=== PATIENT | female | born 1940 | race Caucasian/White ===

== ENCOUNTER 2021-10-28 04:21 | Day surgery (SDC) | payer OTHER ==
[2021-10-27 12:15] VITALS: BMI 36.9
[2021-10-28] MEDS ORDERED: BUPIVACAINE HCL/PF 0.5% (5MG/ML) 10 ML VIAL ONE (07:04)
[2021-10-28] MEDS ORDERED: LIDOCAINE HCL/PF 1% SDV 5ML VIAL ONE (07:04)
[2021-10-28] MEDS ORDERED: IOHEXOL 180 MG/1 ML ML IJ ONE (09:03)
[2021-10-28] MEDS ORDERED: BUPIVACAINE HCL/PF 0.5% (5MG/ML) 10 ML VIAL IJ ONE ×2 (09:03→09:07)
[2021-10-28 09:50] VITALS: BP 133/79; PULSE 74; TEMP 98
== END 2021-10-28 09:45 | disposition home or self-care (01) ==
LOC: JASU-SURG 04:21
PROVIDERS: ATTEND Pain Medicine Pain Medicine
PROC: BR14YZZ Fluoroscopy of Cervical Facet Joint(s) using Other Contrast (ICD-10-PCS; 2021-10-28)
PROC: 3E0T3BZ Introduction of Anesthetic Agent into Peripheral Nerves and Plexi, Percutaneous Approach (ICD-10-PCS; principal; 2021-10-28 08:30)
DX: M47.812 Spondylosis without myelopathy or radiculopathy, cervical region (principal); I10 Essential (primary) hypertension
CPT/HCPCS: 76000-TC-FY

== ENCOUNTER 2021-11-18 04:24 | Day surgery (SDC) | payer OTHER ==
[2021-11-17 08:43] VITALS: BMI 36.3
[2021-11-18] MEDS ORDERED: LIDOCAINE HCL/PF 1% SDV 5ML VIAL ONE (07:21)
[2021-11-18] MEDS ORDERED: LIDOCAINE HCL 1% PRESERVATIVE FREE - 30ML VIAL IJ ONE (08:24)
[2021-11-18] MEDS ORDERED: BUPIVACAINE HCL/PF 0.5% (5MG/ML) 10 ML VIAL IJ ONE (08:25)
[2021-11-18] MEDS ORDERED: IOHEXOL 180 MG/1 ML ML IJ ONE (08:25)
[2021-11-18 08:54] VITALS: BP 141/81; PULSE 74; TEMP 98.2
== END 2021-11-18 09:10 | disposition home or self-care (01) ==
LOC: JASU-SURG 04:24
PROVIDERS: ATTEND Pain Medicine Pain Medicine
PROC: BR14YZZ Fluoroscopy of Cervical Facet Joint(s) using Other Contrast (ICD-10-PCS; 2021-11-18)
PROC: 3E0T3BZ Introduction of Anesthetic Agent into Peripheral Nerves and Plexi, Percutaneous Approach (ICD-10-PCS; principal; 2021-11-18 08:30)
DX: M47.812 Spondylosis without myelopathy or radiculopathy, cervical region (principal)
CPT/HCPCS: 76000-TC-FY

== ENCOUNTER 2021-12-16 04:15 | Day surgery (SDC) | payer OTHER ==
[2021-12-15 09:36] VITALS: BMI 36.3
[2021-12-16] MEDS ORDERED: BUPIVACAINE HCL/PF 0.75% 10 ML VIAL ONE (07:24)
[2021-12-16] MEDS ORDERED: LIDOCAINE HCL/PF 1% SDV 5ML VIAL ONE (07:24)
[2021-12-16] MEDS ORDERED: BUPIVACAINE HCL/PF 0.5% (5MG/ML) 10 ML VIAL ONE (12:09)
[2021-12-16] MEDS ORDERED: LIDOCAINE HCL 1% PRESERVATIVE FREE - 30ML VIAL IJ ONE (12:11)
[2021-12-16] MEDS ORDERED: DEXAMETHASONE SOD PHOSPHATE 10 MG/1 ML VIAL IVPUSH ONE (12:13)
[2021-12-16] MEDS ORDERED: BUPIVACAINE HCL/PF 0.5% (5MG/ML) 10 ML VIAL IJ ONE ×2 (12:14→12:18)
[2021-12-16] MEDS ORDERED: LIDOCAINE HCL/PF 2% SDV 5ML VIAL INF ONE ×2 (12:15→12:25)
[2021-12-16 12:57] VITALS: TEMP 97.5
[2021-12-16 13:10] VITALS: BP 129/76; PULSE 68
== END 2021-12-16 13:10 | disposition home or self-care (01) ==
LOC: JASU-SURG 04:15
PROVIDERS: ATTEND Pain Medicine Pain Medicine
PROC: 3E0T3TZ Introduction of Destructive Agent into Peripheral Nerves and Plexi, Percutaneous Approach (ICD-10-PCS; principal; 2021-12-16 11:30)
PROC: BR14YZZ Fluoroscopy of Cervical Facet Joint(s) using Other Contrast (ICD-10-PCS; 2021-12-16 11:30)
DX: M47.812 Spondylosis without myelopathy or radiculopathy, cervical region (principal); I10 Essential (primary) hypertension
CPT/HCPCS: 76000-TC-FY; J1100

== ENCOUNTER 2022-02-10 04:18 | Day surgery (SDC) | payer OTHER ==
[2022-02-06 16:49] VITALS: BMI 36.3
[2022-02-10] MEDS ORDERED: LIDOCAINE HCL/PF 1% SDV 5ML VIAL ONE ×2 (07:23→10:41)
[2022-02-10] MEDS ORDERED: BUPIVACAINE HCL/PF 0.5% (5MG/ML) 10 ML VIAL ONE (07:23)
[2022-02-10] MEDS ORDERED: LIDOCAINE HCL/PF 2% SDV 5ML VIAL ONE (09:59)
[2022-02-10 10:13] VITALS: TEMP 97.8
[2022-02-10] MEDS ORDERED: LIDOCAINE HCL 1% PRESERVATIVE FREE - 30ML VIAL INF ONE (10:52)
[2022-02-10] MEDS ORDERED: BUPIVACAINE HCL/PF 0.5% (5MG/ML) 10 ML VIAL IJ ONE (10:52)
[2022-02-10] MEDS ORDERED: DEXAMETHASONE SOD PHOSPHATE 10 MG/1 ML VIAL IVPUSH ONE (10:52)
[2022-02-10] MEDS ORDERED: LIDOCAINE HCL/PF 2% SDV 5ML VIAL INF ONE (10:52)
[2022-02-10 11:56] VITALS: BP 123/77; PULSE 67
== END 2022-02-10 11:45 | disposition home or self-care (01) ==
LOC: JASU-SURG 04:18
PROVIDERS: ATTEND Pain Medicine Pain Medicine
PROC: 3E0T3TZ Introduction of Destructive Agent into Peripheral Nerves and Plexi, Percutaneous Approach (ICD-10-PCS; principal; 2022-02-10 12:00)
PROC: BR14YZZ Fluoroscopy of Cervical Facet Joint(s) using Other Contrast (ICD-10-PCS; 2022-02-10 12:00)
DX: M47.812 Spondylosis without myelopathy or radiculopathy, cervical region (principal)
CPT/HCPCS: 76000-TC-FY; J1100

== ENCOUNTER 2024-11-04 14:07 | Day surgery (SDC) | payer OTHER ==
[2024-10-29 14:21] VITALS: BMI 33.3
[2024-11-04] MEDS: BUPIVACAINE HCL/PF 0.25% (2.5MG/ML) 10 ML VIAL IJ ONE ×2 (08:08→10:26)
[2024-11-04] MEDS: cefOXitin SODIUM 2 GM VIAL (RESTRICTED TO ID) IVPB ONE (10:00)
[~2024-11-04 14:07] MED LIST: BUPIVACAINE HCL/PF 0.25% (2.5MG/ML) 10 ML VIAL ONE; GLYCOPYRROLATE 0.2 MG/1 ML VIAL ONE; HEPARIN NA (PORCINE) 5,000 UNITS/ML 1ML VIAL ONE; LIDOCAINE HCL/PF 2% SDV 5ML VIAL ONE; MIDAZOLAM HCL 2 MG/2 ML SINGLE DOSE VIAL ONE; NEOSTIGMINE METHYLSULFATE 0.5 MG/1 ML - 10 ML MDV ONE; ONDANSETRON 4 MG/2 ML VIAL IVPUSH PRN; ONDANSETRON 4 MG/2 ML VIAL ONE; PROPOFOL 40 ML ONE; ROCURONIUM BROMIDE 50 MG/5 ML SYRINGE ONE; ROCURONIUM BROMIDE 50 MG/5 ML VIAL ONE; SUCCINYLCHOLINE CHLORIDE 200 MG/10 ML SYRINGE ONE; SUGAMMADEX SODIUM 200 MG/2 ML VIAL ONE; cefOXitin SODIUM 2 GM VIAL (RESTRICTED TO ID) IVPB ONE
[2024-11-04] MEDS ORDERED: ONDANSETRON 8 MG TABLET (FP) PO SCH (14:15)
[2024-11-04] MEDS ORDERED: CYANOCOBALAMIN (VITAMIN B-12) 1000 MCG/1 ML VIAL IM SCH (14:15)
[2024-11-04] MEDS: LACTATED RINGERS SOLUTION 1,000 ML IV SCH ×2 (14:57→17:05)
[2024-11-04] MEDS ORDERED: METOCLOPRAMIDE HCL 10 MG TABLET (FP) PO SCH (16:30)
[2024-11-04] MEDS: METOCLOPRAMIDE HCL 10 MG TABLET (FP) PO SCH (16:58)
[2024-11-04] MEDS: ONDANSETRON *ODT* 4 MG TABLET SL SCH (17:00)
[2024-11-04] MEDS: CYANOCOBALAMIN (VITAMIN B-12) 1000 MCG/1 ML VIAL IM SCH (17:05)
[2024-11-04] MEDS: ACETAMINOPHEN 1000 MG/100 ML BAG IVPB PRN (19:56)
[2024-11-04] MEDS: CHOLECALCIFEROL (VIT D3) 1,000 UNIT (25 MCG) TABLET PO SCH (22:00)
[2024-11-04] MEDS: ATORVASTATIN CA 10 MG TABLET (FP) PO SCH (22:00)
[2024-11-04] MEDS ORDERED: PSYLLIUM HUSK PO SCH (22:00)
[2024-11-04] MEDS ORDERED: PATIENT'S OWN MEDICATION (NON-FORMULARY) (Calcium Carb/D3/Magnesium/Zinc [Cal Mag Zinc-D T PO SCH (22:00)
[2024-11-04] MEDS ORDERED: amLODIPine BESYLATE 5 MG TABLET (FP) PO SCH (22:00)
[2024-11-04] MEDS ORDERED: [UNRECOGNIZED DRUG - OTHER] PO SCH (22:00)
[2024-11-04] MEDS: CALCIUM 500MG/VIT-D 200 UNITS COMBO TABLET (FP) PO SCH (22:00)
[2024-11-04] MEDS ORDERED: ATORVASTATIN CA 10 MG TABLET (FP) PO SCH (22:00)
[2024-11-04] MEDS: PSYLLIUM 5.85 GM PACKET PO SCH (22:01)
[2024-11-04] MEDS: amLODIPine BESYLATE 5 MG TABLET (FP) PO SCH (22:01)
[2024-11-05 08:59] LABS: HEMATOCRIT 38.4 % (32.4-45.2); HEMOGLOBIN 12.7 GM/dL (10.7-15.3); MCH 30.3 pg (25.7-33.7); MEAN CELL VOLUME 91.8 fl (80-96); MEAN PLT VOLUME 8.6 fl (7.5-11.1); PLATELET COUNT 200 10^3/uL (134-434); RBC 4.18 M/mm3 (3.60-5.2); RDW 14.3 % (11.6-15.6); WHITE BLOOD COUNT 7.4 K/mm3 (4.0-10.0)
[2024-11-05 09:21] LABS: POTASSIUM 4.3 mmol/L (3.5-5.1)
[2024-11-05 09:22] LABS: BLOOD UREA NITROGEN 12.8 mg/dL (7-18); CALCIUM 8.6 mg/dL (8.5-10.1)
[2024-11-05 09:26] LABS: CREATININE 0.7 mg/dL (0.55-1.3)
[2024-11-05] MEDS: ASPIRIN COATED 81 MG TABLET.EC PO SCH (09:42)
[2024-11-05] MEDS: PANTOPRAZOLE SODIUM 40 MG VIAL IVPUSH SCH (09:42)
[2024-11-05] MEDS ORDERED: ASPIRIN COATED 81 MG TABLET.EC PO SCH (10:00)
[2024-11-05] MEDS ORDERED: PANTOPRAZOLE SODIUM 40 MG VIAL IVPUSH SCH (10:00)
[2024-11-05 17:46] VITALS: BP 112/63; PULSE 66; RESP 20; TEMP 97.9
== END 2024-11-05 18:36 | disposition home or self-care (01) ==
LOC: JASUSAT 14:07 → SUATTDRO 14:07 → J8W 16:10 → JASUSAT 11-05 18:36
PROVIDERS: ATTEND Internal Medicine
PROC: 0BQT3ZZ Repair Diaphragm, Percutaneous Approach (ICD-10-PCS; principal; 2024-11-04 12:00)
PROC: 0DV44ZZ Restriction of Esophagogastric Junction, Percutaneous Endoscopic Approach (ICD-10-PCS; 2024-11-04 12:00)
DX: K44.9 Diaphragmatic hernia without obstruction or gangrene (principal)
CPT/HCPCS: 43281; S2900; 36415; 80048; 85027; 86850; 86900; 86901; 94010; 94760; J0131; J1644; Q0162